=== PATIENT | female | born 1975 | race Caucasian/White ===

== ENCOUNTER 2017-04-17 19:49 | Emergency (ER) | payer OTHER ==
[2017-04-17 21:06] LABS: BASOPHIL 0.1 % (0-2); HCT 40.6 % (37.0-47.0); HGB 13.5 g/dl (12.5-16.0); LYMPHOCYTE 17.1 % (15-48); MCH 29.5 pg (25.0-31.0); MCHC 33.3 g/dL (32.0-36.0); MCV 88.8 fL (78.0-100.0); MONOCYTE 7.5 % (0-12); MPV 9.3 fL (6.0-9.5); NEUTROPHIL 74.3 % (41-80); PLT 257 K/uL (150-400); RBC 4.57 M/uL (4.20-5.40); RDW 13.4 % (11.5-14.0); WBC 11.6 K/uL (4.0-10.5)
[2017-04-17 21:23] LABS: ALBUMIN 3.6 g/dL (3.5-5.0); BILIRUBIN - TOTAL 0.5 mg/dL (0.1-1.0); CREATININE 0.6 mg/dL (0.5-1.0); GLOBULIN (CALCULATION) 2.4 g/dL (2.2-4.2)
== END 2017-04-17 21:57 | disposition home or self-care (01) ==
LOC: FER 19:49
PROVIDERS: Emergency Medicine
DX: R10.9 Unspecified abdominal pain (principal); R11.2 Nausea with vomiting, unspecified; J44.9 Chronic obstructive pulmonary disease, unspecified; F17.200 Nicotine dependence, unspecified, uncomplicated; Z90.710 Acquired absence of both cervix and uterus; Z98.51 Tubal ligation status
CPT/HCPCS: 36415; 80053; 82150; 83690; 85025; J1885; J2405